=== PATIENT | female | born 1950 | race Caucasian/White ===

== ENCOUNTER 2023-09-13 13:56 | Outpatient (AMB) | payer MEDICARE, BC, SELFPAY ==
--- NOTE | 2023-09-13 14:19 | MHC.OFFWIV ---
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 She states she landed on the side of the step on her right lower ribs and had a inversion injury to her left ankle [facility] Social History Patient Tobacco Use Status: Never used Tobacco [place] [facility] [place]algias, Reports arthralgias and Reports joint swelling Physical Exam Vital Signs: Last Vital Signs Temp 98.4 F 09/13/23 14:20 Pulse 83 09/13/23 14:20 BP 160/80 H 09/13/23 14:20 Pulse Ox 96 09/13/23 14:20 Oxygen Delivery Method Room Air 09/13/23 14:20 BMI result Body Mass Index 23.4 HEENT Head: Yes normal to inspection, Yes normocephalic and Yes atraumatic Ears: hearing grossly normal bilaterally and external ears normal General nose exam: Normal external nose present Face and sinus: Yes normal facial exam Chest Chest palpation & inspection: localized rib tenderness with anteroposterior compression and tenderness rib (Right lower ribs) Resp Effort & Inspection: normal respiratory effort Auscultation: clear to auscultation bilaterally Extrem Left lower extremity: ankle Details: tenderness (Patient had swelling over the lateral malleolus with palpable tenderness. No pain when palpating the foot), swelling, abnormal ROM and ecchymosis Results Reviewed Results Reviewed: I reviewed the preliminary x-ray results of the left ankle was negative with no fracture noted the right ribs showed a rib fracture at T10 that was nondisplaced. Assessment & Plan Assessment & Plan (1) Left ankle pain: Code(s): M25.572 - Pain in left ankle and joints of left foot Plan: The patient was given an ambulatory cast boot which she will use for a minimum of 2 weeks with ambulation. I also taught her some gentle lahbr-et-yvsydn exercises and she will continue with ice. (2) Rib pain on right side: Code(s): R07.81 - Pleurodynia Plan: The patient will limit her miles and take Tylenol for pain go to the emergency room if shortness of breath develops Plan See plan Orders: Orders XR ankle LT min 3V Today XR ribs RT 2V Today Coding Level of Care Code Est Pt Level 3 (44987) Diagnoses Left ankle pain M25.572 Rib pain on right side R07.81 Time Spent (min) 20
[2023-09-13 14:20] VITALS: BP 160/80; PULSE 83; TEMP 36.9; O2SAT 96; BMI 23.4
== END 2023-09-13 15:17 | disposition home or self-care (01) ==
PROVIDERS: PCP Family Medicine; Visit Provider Physician Assistant Medical
DX: M25.572 Pain in left ankle and joints of left foot (principal); R07.81 Pleurodynia
CPT/HCPCS: 99203

== ENCOUNTER 2023-09-13 14:42 | Outpatient (REF) | payer MEDICARE, BC, SELFPAY ==
--- NOTE | ~2023-09-13 | XR_ITS ---
EXAMINATION: Left ankle and right RIBS with chest. CLINICAL INDICATIONS: Left ankle pain and right hip pain. COMPARISON: None. TECHNIQUE: Left ankle 3 views. Right RIBS and chest 4 views. FINDINGS: LEFT ANKLE: There is moderate left lateral malleolar soft tissue swelling. No visible acute fracture, dislocation or subluxation seen. The ankle mortise and subtalar joints are normal. The soft tissues are normal. CHEST AND RIGHT RIBS: The lungs are well-expanded and clear. Heart size and pulmonary vascularity is normal. Multiple views of right ribs reveal no visible fracture or bony abnormality. XR/XR ribs RT 2V IMPRESSION: Unremarkable chest and right ribs. Unremarkable left ankle exam.
--- NOTE | ~2023-09-13 | XR_ITS ---
EXAMINATION: Left ankle and right RIBS with chest. CLINICAL INDICATIONS: Left ankle pain and right hip pain. COMPARISON: None. TECHNIQUE: Left ankle 3 views. Right RIBS and chest 4 views. FINDINGS: LEFT ANKLE: There is moderate left lateral malleolar soft tissue swelling. No visible acute fracture, dislocation or subluxation seen. The ankle mortise and subtalar joints are normal. The soft tissues are normal. CHEST AND RIGHT RIBS: The lungs are well-expanded and clear. Heart size and pulmonary vascularity is normal. Multiple views of right ribs reveal no visible fracture or bony abnormality. XR/XR ankle LT min 3V IMPRESSION: Unremarkable chest and right ribs. Unremarkable left ankle exam.
== END 2023-09-13 14:43 | disposition home or self-care (01) ==
LOC: HO.HMGCX 14:42
PROVIDERS: PCP Family Medicine; Visit Provider Physician Assistant Medical
DX: R07.81 Pleurodynia (principal); M25.572 Pain in left ankle and joints of left foot
CPT/HCPCS: 71100; 73610

== ENCOUNTER 2023-12-06 21:09 | Emergency (ER) | payer MEDICARE, BC, SELFPAY ==
--- NOTE | 2023-12-06 | ECG_ITS ---
Test Reason : HYPERTENSION Blood Pressure : / mmHG Vent. Rate : 076 BPM Atrial Rate : 076 BPM P-R Int : 138 ms QRS Dur : 094 ms QT Int : 412 ms P-R-T Axes : 040 -09 015 degrees QTc Int : 463 ms Normal sinus rhythm Possible Left atrial enlargement Incomplete right bundle branch block Minimal voltage criteria for LVH, may be normal variant ( R in aVL ) Borderline ECG No previous ECGs available Referred By: Generic ED Physician Electronically Signed By:LILLIAN LOMBARDI MD
[2023-12-06 21:11] VITALS: BP 180/91; PULSE 89; RESP 18; TEMP 36.7; O2SAT 99; BMI 22.8
--- NOTE | 2023-12-06 21:33 | MHC.EDTECH ---
Patient brought into triage area,EKG taken per order and signed by provider,labs drawn and sent to lab.
[2023-12-06 21:38] LABS: MANUAL DIFF FLAG NO
[2023-12-06 21:39] LABS: Basophils Percent Auto 0.5 % (0-2); Eosinophils Absolute Auto 0.3 X10*3/uL (0.0-0.4); Eosinophils Percent Auto 5.4 % (0-4); Hematocrit 38.2 % (37.0-47.0); Hemoglobin 12.8 g/dl (12.0-16.0); Imm Gran Abs Auto 0.02 X10*3/uL (0.00-0.03); Imm Gran Pct Auto 0.4 % (0.0-0.4); Lymphocytes Absolute Auto 1.9 X10*3/uL (1.2-4.9); Lymphocytes Percent Auto 33.2 % (20-40); Mean Corpuscular HGB Conc 33.5 g/dl (31.0-35.0); Mean Corpuscular Hemoglobin 30.1 pg (27.0-33.0); Mean Corpuscular Volume 89.9 fL (80.0-98.0); Mean Platelet Volume 9.8 fL (9.4-12.3); Monocytes Absolute Auto 0.5 X10*3/uL (0.1-1.2); Monocytes Percent Auto 8.9 % (2-11); Neutrophils Absolute Auto 2.9 x10*3/uL (2.0-8.3); Neutrophils Percent Auto 51.6 % (45-73); Platelet Count 286 X10*3/uL (160-400); Red Blood Count 4.25 X10*6/uL (4.20-5.50); Red Cell Distribution Width 13.3 % (11.0-16.0); White Blood Count 5.6 X10*3/uL (4.8-10.8)
[2023-12-06 21:56] LABS: Alanine Aminotransferase 20 U/L (0-31); Albumin Level 3.8 g/dL (3.5-5.0); Alkaline Phosphatase 87 U/L (39-117); Anion Gap 12 (12-20); Aspartate Amino Transferase 25 U/L (5-31); Bilirubin Total 0.4 mg/dL (0.0-1.0); Blood Urea Nitrogen 20 mg/dL (9-16); Calcium 9.4 mg/dL (8.4-10.2); Carbon Dioxide 26 mmol/L (22-29); Chloride 107 mmol/L (96-108); Estimated Glomerular Filt Rate > 60; Glucose Random 105 mg/dL (60-115); Potassium 3.8 mmol/L (3.3-5.1); Sodium 141 mmol/L (135-145); Total Protein 6.8 g/dL (6.5-8.0)
[2023-12-06 22:03] LABS: Troponin-I High Sensitivity 7.1 ng/L (<3.5-17.0)
--- NOTE | 2023-12-07 00:53 | PC.NURSE ---
pt no answer when called for reassessment.
== END 2023-12-07 00:54 | disposition left against medical advice (07) ==
PROVIDERS: Emergency Provider Emergency Medicine; PCP Family Medicine
DX: I10 Essential (primary) hypertension (principal); R42 Dizziness and giddiness; R26.81 Unsteadiness on feet
CPT/HCPCS: 36415; 80053; 84484; 85025; 93005; 99283

== ENCOUNTER → 2023-12-06 21:28 | Outpatient (BNV) | payer MEDICARE, BC, SELFPAY | PROVIDERS: Emergency Provider Emergency Medicine; PCP Family Medicine; Visit Provider Internal Medicine Cardiovascular Disease | DX: I45.10 Unspecified right bundle-branch block (principal) | CPT/HCPCS: 93010 ==